=== PATIENT | female | born 1970 | race Caucasian/White ===

== ENCOUNTER → 2017-03-01 | Outpatient (CLI) | payer OTHER ==
--- NOTE | 2017-03-01 18:44 | US ---
EXAMINATION TYPE: US venous doppler duplex LE LT DATE OF EXAM: 03/01/2017 6:04 PM COMPARISON: NONE CLINICAL HISTORY: M79.89 Left Leg Swelling. SIDE PERFORMED: Left TECHNIQUE: The lower extremity deep venous system is examined utilizing real time linear array sonog noemi with graded compression, doppler sonography and color-flow sonography. VESSELS IMAGED: External Iliac Vein (EIV) Common Femoral Vein Deep Femoral Vein Greater Saphenous Vein * Femoral Vein Popliteal Vein Small Saphenous Vein * Proximal Calf Veins (* superficial vessels) Left Leg: Negative for DVT IMPRESSION: Negative exam. No evidence of deep venous thrombosis in the left leg.
== END | disposition home or self-care (01) ==
LOC: RADUSMAIN 18:00
PROVIDERS: ATTEND Family Medicine
DX: M79.89 Other specified soft tissue disorders (principal)

== ENCOUNTER → 2019-03-27 | Outpatient (CLI) | payer OTHER ==
[2019-03-27 11:43] LABS: Cholesterol 156 mg/dL (<200); HDL Cholesterol 48 mg/dL (40-60); LDL Cholesterol,Calculated 96 mg/dL (0-99); Triglycerides 59 mg/dL (<150)
--- NOTE | 2019-03-28 11:35 | MM ---
Reason for exam: screening (asymptomatic). Last mammogram was performed 7 years and 11 months ago. MG 3D Screening Mammo W/Cad Bilateral CC and MLO view(s) were taken. Prior study comparison: April 17, 2011, bilateral digital screening mammo w/CAD. The breast tissue is heterogeneously dense. This may lower the sensitivity of mammography. No suspicious abnormality. No significant new finding when compared with prior studies. ASSESSMENT: Negative, BI-RAD 1 RECOMMENDATION: Routine screening mammogram of both breasts in 1 year.
== END | disposition home or self-care (01) ==
LOC: RADMAMWWP 10:09
PROVIDERS: ATTEND Obstetrics & Gynecology
DX: Z12.31 Encounter for screening mammogram for malignant neoplasm of breast (principal); Z13.220 Encounter for screening for lipoid disorders
CPT/HCPCS: 77063; 77067; 80061

== ENCOUNTER → 2019-09-28 | Outpatient (CLI) | payer OTHER ==
--- NOTE | 2019-09-28 18:03 | CONS ---
CONSULTATION DATE OF SERVICE: 09/28/2019 This patient is a 49-year-old lady who has been evaluated in Sleep Center for possible obstructive sleep apnea-hypopnea syndrome. HISTORY OF PRESENT ILLNESS/SLEEP-WAKE EVALUATION: Patient's usual sleep schedule on working days is from around 10 or 11 p.m. to 6:30 or 7 a.m. and on weekends from around 10 or 11 p.m. until 8 or 9 a.m. Sometimes she has problems with falling asleep. She has a TV set in the bedroom. She usually sleeps on the side position with her with snoring, witnessed episodes by him of stopped breathing during sleep. She wakes up from sleep several times with up to 2 episodes of nocturia during the night. In the morning the patient wakes up tired, has difficulties paying attention, falling asleep during the day, has problems with memory, concentration, episodes of depression and anxiety. [place] Sleepiness Scale is significantly increased at 14. The patient may take 2 naps a day, usually around 1 to 3 p.m. She feels restored after naps. No vivid dreams during the naps and no history of hypnagogic hallucinations. PAST MEDICAL HISTORY: Positive for low level of vitamin D. PAST SURGICAL HISTORY: . MEDICATIONS: Vitamin supplements. SOCIAL HISTORY: Negative for smoking or using alcohol. FAMILY HISTORY: Positive for snoring, cancer in father. REVIEW OF SYSTEMS: Awakenings from sleep, sleepiness during the day. PHYSICAL EXAMINATION: GENERAL: A pleasant lady without distress. VITAL SIGNS: BP 129/75, HR 88, RR 16, height 5 feet 4-1/2 inches, weight 245.4 pounds, body mass index 41.4, temperature 98.3, oxygen saturation at room air 100%. HEENT: PERRLA, EOMI. Evaluation of oropharynx showed tongue protrudes midline. Extremely low position of soft palate. Mallampati IV. NECK: Supple. No JVD. Thyroid is not palpable. Neck measures 15-1/4 inches in circumference. LUNGS: Clear to percussion and to auscultation. Good air exchange. No wheezing or rhonchi. HEART: S1, S2 regular. No murmurs, gallops or rubs. ABDOMEN: Obese. EXTREMITIES: No clubbing or cyanosis. GROUP ROOMS COORDINATOR: Awake, alert, and oriented X3. Cranial nerves 2 to 7 intact. There is no fasciculation or atrophy. noted. No focal deficits observed. IMPRESSION: 1. Snoring, witnessed episodes of stopped breathing during sleep, awakenings from sleep with nocturia, extremely low position of soft palate, Mallampati IV, sleepiness, [place] Sleepiness Scale 14; obstructive sleep apnea-hypopnea syndrome. 2. Obesity with body mass index of 41.4. 3. Status post section. 4. History of low level of vitamin D. PLAN: 1. Polysomnography for evaluation of patient's breathing during sleep. 2. CPAP/BiPAP titration if sleep study confirms obstructive sleep apnea-hypopnea syndrome. 3. Preferable position during sleep on the side. 4. No driving if patient feels any sleepiness. 5. I will see patient for follow up visit to explain results of testing and following plan. Thank you very much for referring this patient for consultation. Sincerely, Burton Gallego MD, PhD, FAASM Diplomat of [place] [employer] [place] [employer] Technical Systems Architect of [facility] [place] MMODL / IJN: [id number] /
== END | disposition home or self-care (01) ==
LOC: SLEEP 13:46
PROVIDERS: ATTEND Internal Medicine
DX: G47.33 Obstructive sleep apnea (adult) (pediatric) (principal); E66.9 Obesity, unspecified; Z68.41 Body mass index [BMI] 40.0-44.9, adult; R35.1 Nocturia; Z98.890 Other specified postprocedural states; Z86.39 Personal history of other endocrine, nutritional and metabolic disease; Z79.899 Other long term (current) drug therapy
CPT/HCPCS: 99211

== ENCOUNTER → 2020-05-09 | Outpatient (CLI) | payer OTHER ==
--- NOTE | 2020-05-13 08:48 | MM ---
Reason for exam: screening (asymptomatic). Last mammogram was performed 1 year and 1 month ago. Physical Findings: A clinical breast exam by your physician is recommended on an annual basis and results should be correlated with mammographic findings. MG 3D Screening Mammo W/Cad Bilateral CC and MLO view(s) were taken. Prior study comparison: March 27, 2019, bilateral MG 3d screening mammo w/cad. April 17, 2011, bilateral digital screening mammo w/CAD. The breast tissue is heterogeneously dense. This may lower the sensitivity of mammography. No significant changes when compared with prior studies. ASSESSMENT: Negative, BI-RAD 1 RECOMMENDATION: Routine screening mammogram of both breasts in 1 year.
== END | disposition home or self-care (01) ==
LOC: RADMAMWWP 16:07
PROVIDERS: ATTEND Obstetrics & Gynecology
DX: Z12.31 Encounter for screening mammogram for malignant neoplasm of breast (principal)
CPT/HCPCS: 77063; 77067

== ENCOUNTER → 2020-08-29 | Outpatient (CLI) | payer OTHER ==
--- NOTE | 2020-08-29 23:01 | SFUN ---
SLEEP CENTER FOLLOW UP NOTE DATE OF SERVICE: 08/29/2020 50-year-old lady has been followed in Sleep Center after she has had a home sleep apnea test and titration. Home sleep apnea test showed obstructive sleep apnea. During titration her respiration was normalized. Subsequently I ordered for her CPAP equipment and she started to use it. Patient able to use it every night without significant problems. I explained her results of the sleep studies. She feels better in the morning after awakenings after usage of CPAP. I checked her CPAP unit. CPAP pressure is 7 cm of water. Usage is 30 out of 30 nights for more than 4 hours. Average usage is 7.7 hours per night. Leak is 4 L/minutes which is normal. Apnea-hypopnea index is 2.1, which is perfect. [place] Sleepiness Scale still increased slightly to 12, but again, as I mentioned above, patient feels better. MEDICATIONS: None. PHYSICAL EXAM: Patient in no distress. BP 121/86, HR 84, RR 12, weight 157.2, temperature 98.4, oxygen saturation at room air 98%. HEENT: PERRLA, EOMI. Oropharynx extremely low position of soft palate. Mallampati 4. NECK: Supple, no JVD. Thyroid is not palpable. LUNGS: Clear to percussion and to auscultation. Good air exchange. No wheezing or rhonchi. HEART: S1, S2 regular. No murmurs, gallops, or rubs. ABDOMEN: Obese. Soft and nontender. Bowel sounds are present. No organomegaly appreciated. EXTREMITIES: No clubbing or cyanosis. STEEL ERECTOR APPRENTICE: Awake, alert, and oriented X3. Cranial nerves 2 to 7 intact. There is no fasciculation or atrophy. noted. No focal deficits observed. IMPRESSION: 1. Obstructive sleep apnea-hypopnea syndrome. Patient demonstrated 100% compliance with treatment benefitting from treatment. 2. Obesity. 3. Status post . 4. History of low vitamin D level. PLAN: 1. Patient will continue to use PAP equipment every night for the whole night. 2. Sleep hygiene with regular time in bed for at least 7-1/2 to 8 hours. 3. Precautions related to driving. No driving if feeling sleepiness. 4. I will maintain all necessary prescription for PAP supplies including mask, tube, filters. 5. Watching weight. 6. No driving if feeling sleepiness. 7. Follow-up visit in 6 months or earlier if patient has any problems. Thank you very much for allowing me to participate in management of your patient. Sincerely, Burton Gallego MD, PhD, FAASM Diplomat of [place] [employer] [employer] of [facility] [place] MMODL / SARAHN: [id number] /
== END | disposition home or self-care (01) ==
LOC: SLEEP 13:30
PROVIDERS: ATTEND Internal Medicine
DX: G47.33 Obstructive sleep apnea (adult) (pediatric) (principal); E66.9 Obesity, unspecified; Z99.89 Dependence on other enabling machines and devices; Z98.890 Other specified postprocedural states; Z86.2 Personal history of diseases of the blood and blood-forming organs and certain disorders involving the immune mechanism

== ENCOUNTER → 2021-02-03 | Outpatient (CLI) | payer OTHER | END | disposition home or self-care (01) | LOC: LABWHC1 10:21 | PROVIDERS: ATTEND Nurse Practitioner Acute Care | DX: E53.9 Vitamin B deficiency, unspecified (principal); E55.9 Vitamin D deficiency, unspecified; R53.82 Chronic fatigue, unspecified | CPT/HCPCS: 36415; 82306; 82607; 84207; 84439; 84443; 84481 ==

== ENCOUNTER → 2021-04-17 | Outpatient (CLI) | payer OTHER ==
--- NOTE | 2021-04-17 17:13 | SFUN ---
SLEEP CENTER FOLLOW UP NOTE DATE OF SERVICE: 04/17/2021. 51-year-old lady has been followed in Sleep Center for treatment of obstructive sleep apnea-hypopnea syndrome. Patient continues to use her CPAP equipment every night for the whole night but still has sleepiness and tiredness during the day. [place] Sleepiness Scale today increased to 14. Patient getting all her CPAP supplies. I checked CPAP unit. Air filter is very old and dirty. CPAP pressure is 7 cm of water. Usage is 30/30 nights and 28/30 nights for more than 4 hours. Average usage is 6.4 hours, which indicates good compliance. Leak is only 6 L/minutes which is normal. Apnea-hypopnea index is only 1.7 which is absolutely perfect. CURRENT MEDICATIONS: None at the present time. PHYSICAL EXAMINATION: GENERAL: Patient in no distress. BP 123/81, HR 86, RR 15, height 5 feet 5 inches, weight 259, BMI 43.0. Temperature 98.1, oxygen saturation at room air 97%. Oropharynx: Extremely low position of soft palate, Mallampati 4. NECK: Supple, no JVD. Thyroid is not palpable. LUNGS: Clear to percussion and to auscultation. Good air exchange. No wheezing or rhonchi. HEART: S1, S2 regular. No murmurs, gallops, or rubs. ABDOMEN: Obese. Soft and nontender. Bowel sounds are present. No organomegaly appreciated. EXTREMITIES: No clubbing or cyanosis. RADIO OFFICER: Awake, alert, and oriented X3. Cranial nerves 2 to 7 intact. There is no fasciculation or atrophy. noted. No focal deficits observed. IMPRESSION: 1. Obstructive sleep apnea-hypopnea syndrome patient demonstrated 100% compliance with treatment benefitting from treatment. 2. The patient continues to feel sleepy while using CPAP equipment. Today her [place] Sleepiness Scale significantly increased to 14. Differential diagnosis should include additional diagnosis of hypersomnia or narcolepsy without cataplexy. 3. Obesity, in morbid range. BMI 43.0. 4. Status post . 5. History of low vitamin D level. PLAN: 1. Multiple sleep latency test for objective evaluation of patient's symptoms of excessive daytime sleepiness. It should be done after the night in the office on the CPAP. 2. Losing weight. 3. Sleep hygiene with regular time in bed for 7-1/2 to 8 hours. 4. Precautions related to driving. No driving if feeling sleepiness. 5. Replace air filter immediately. 6. Continue treatment with CPAP every night for the whole night. 7. Following plan after reviewing results of MSLT. Thank you very much for allowing me to participate in management of your patient., Sincerely, Burton Gallego MD, PhD, FAASM Diplomat of [employer] [employer] Sleep Medicine Board of [place] [employer] Punch Press Setter of [facility] [place] MMODL / IJN: [id number] /
== END ==
LOC: SLEEP 13:55
PROVIDERS: ATTEND Internal Medicine
DX: G47.33 Obstructive sleep apnea (adult) (pediatric) (principal); E66.01 Morbid (severe) obesity due to excess calories; Z68.41 Body mass index [BMI] 40.0-44.9, adult; Z99.89 Dependence on other enabling machines and devices; Z86.39 Personal history of other endocrine, nutritional and metabolic disease; Z98.891 History of uterine scar from previous surgery

== ENCOUNTER → 2021-07-28 | Outpatient (CLI) | payer OTHER ==
--- NOTE | 2021-07-29 14:42 | MM ---
Reason for exam: screening (asymptomatic). Last mammogram was performed 1 year and 3 months ago. Physical Findings: A clinical breast exam by your physician is recommended on an annual basis and results should be correlated with mammographic findings. MG 3D Screening Mammo W/Cad Bilateral CC and MLO view(s) were taken. Prior study comparison: May 09, 2020, bilateral MG 3d screening mammo w/cad. March 27, 2019, bilateral MG 3d screening mammo w/cad. The breast tissue is heterogeneously dense. This may lower the sensitivity of mammography. No significant changes when compared with prior studies. ASSESSMENT: Negative, BI-RAD 1 RECOMMENDATION: Routine screening mammogram of both breasts in 1 year.
== END | disposition home or self-care (01) ==
LOC: RADMAMWWP 09:36
PROVIDERS: ATTEND Obstetrics & Gynecology
DX: Z12.31 Encounter for screening mammogram for malignant neoplasm of breast (principal)
CPT/HCPCS: 77063; 77067

== ENCOUNTER → 2021-08-13 | Outpatient (CLI) | payer OTHER ==
--- NOTE | 2021-08-14 06:58 | SFUN ---
SLEEP CENTER FOLLOW UP NOTE DATE OF SERVICE: 08/13/2021 51-year-old lady has been followed in Sleep Center for treatment of obstructive sleep apnea-hypopnea syndrome and excessive daytime sleepiness to discuss results of recent PAP titration night with following multiple sleep latency test. I discussed results of sleep studies with patient in details. During PAP titration night, the patient respiration was on full control for the whole night. Total apnea- hypopnea index for the whole night 2.2 and that was with range of pressure from 7 to 10 cm of water. No significant periodic limb movements have been documented at all. Multiple sleep latency test on the following day showed mean sleep latency 11.5 minutes using a 4 naps and 12.8 minutes calculating 5 naps. No sleep onset REM periods have been documented. Results exclude narcolepsy but may indicate mild sleepiness related to obstructive sleep apnea-hypopnea syndrome. Sometimes sleepiness could be present even after respiration on full control with CPAP. Patient continued to feel some sleepiness. [place] Sleepiness Scale today increased to 13. MEDICATIONS: None. PHYSICAL EXAMINATION: GENERAL: Patient in no distress. BP 121/79, HR 80, RR 16, height 5 feet 4-3/4 inches, weight 252 pounds. Body mass index 42.3, temperature 97.5, oxygen saturation at room air 99%. Oropharynx: Extremely low position of soft palate, Mallampati 4. NECK: Supple, no JVD. Thyroid is not palpable. LUNGS: Clear to percussion and to auscultation. Good air exchange. No wheezing or rhonchi. HEART: S1, S2 regular. No murmurs, gallops, or rubs. ABDOMEN: Obese. Soft and nontender. Bowel sounds are present. No organomegaly appreciated. EXTREMITIES: No clubbing or cyanosis. FLUID DESIGNER: Awake, alert, and oriented X3. Cranial nerves 2 to 7 intact. There is no fasciculation or atrophy. noted. No focal deficits observed. I checked CPAP unit. Pressure is 7 cm of water. Usage is 26/30 nights. Average usage 4.8 hours per night. Leak is 18 L/minute which is borderline. Apnea-hypopnea index is 1.7 which is absolutely normal. IMPRESSION: 1. Obstructive sleep apnea-hypopnea syndrome. The patient demonstrated borderline compliance with treatment. Normal respiration on CPAP. 2. Multiple sleep latency test to exclude narcolepsy or idiopathic hypersomnia. Very slight sleepiness by results of the test could be related to obstructive sleep apnea-hypopnea syndrome. 3. Obesity. 4. Status post . 5. History of low vitamin D level. PLAN: 1. Patient should continue to use CPAP equipment every night for the whole night. 2. Present usage machine average 4.8 hours per night for the last month. The patient should increase time of sleep and usage machine to 7.5 hours. 3. Precautions related to driving. No driving if feeling sleepiness. 4. I discussed with the patient possibility to start her on treatment with modafinil or armodafinil to prevent any symptoms of excessive daytime sleepiness. 5. Precautions related to driving. No driving if feeling sleepiness. 6. I will maintain all necessary prescription for CPAP supplies. 7. Losing weight. Thank you very much for allowing me to participate in management of your patient. Sincerely, Burton Gallego MD, PhD, FAASM Diplomat of [place] [employer] Sleep Medicine Board of [place] [employer] Medicine Home Health Assistant of [facility] [place] MMODL / SARAHN: [id number] /
== END ==
LOC: SLEEP 15:40
PROVIDERS: ATTEND Internal Medicine
DX: G47.33 Obstructive sleep apnea (adult) (pediatric) (principal); E66.9 Obesity, unspecified; Z87.59 Personal history of other complications of pregnancy, childbirth and the puerperium; Z99.89 Dependence on other enabling machines and devices; Z68.41 Body mass index [BMI] 40.0-44.9, adult; Z86.39 Personal history of other endocrine, nutritional and metabolic disease

== ENCOUNTER → 2021-11-17 | Outpatient (CLI) | payer OTHER | END | disposition home or self-care (01) | LOC: LABWHC1 10:04 | PROVIDERS: ATTEND Psychiatry & Neurology Neurology | DX: I49.9 Cardiac arrhythmia, unspecified (principal) | CPT/HCPCS: 36415; 93005 ==

== ENCOUNTER → 2022-04-15 | Outpatient (CLI) | payer OTHER ==
--- NOTE | 2022-04-15 15:01 | P.PN ---
Subjective DATE: 04/15/2022 FOLLOW UP VISIT. Patient with obstructive sleep apnea hypopnea syndrome return to sleep center for follow-up visit. Information from previous visit have been reviewed. Patient is using PAP equipment every night but some nights note for the whole night, getting PAP supplies in time. The patient does not have significant problems with the mask, PAP unit and humidification. [place] sleepiness scale is still significantly increased to 19. I checked PAP unit. PAP unit pressure 7 cm H2O. Usage is 70 % for more then 4 hours, average 4.3 hours per night. Leak is 18 l/m, which is in acceptable range. Apnea Hypopnea Index is 1.9, which is normal. MEDICATIONS: None During physical exam: GENERAL: A pleasant patient without any distress. VITAL SIGNS: BP 118/78, HR 74, RR 16, weight 259, temperature 98.3, oxygen saturation at room air 98 % . HEENT: PERRLA, EOMI.low position of soft palate, Mallapati 4 . NECK: Supple. No JVD. LUNGS: Clear to percussion and to auscultation. Good air exchange. No wheezing or rhonchi. HEART: S1, S2 regular. ABDOMEN: Soft and nontender. Obese EXTREMITIES: No clubbing or cyanosis. DIRECTOR OF RADIO SERVICES: Awake, alert, and oriented x3. No focal deficit. Impressions: 1. Obstructive sleep apnea-hypopnea syndrome. Patient demonstrated good compliance with treatment, benefiting from treatment. She continued to have symptoms of excessive daytime sleepiness. 2. Obesity body mass index 43.9. 3. Status post . 4. History of low vitamin D level. Plan: 1. Continue using PAP equipment every night for the whole night. 2. To change air filter at least 1-2 times per month. 3. Prescription for modafinil 200 mg once a day in the morning. 4. Advised patient to remove all remaining water from humidifier canister daily and make it dry after each usage. Refill canister with fresh distilled water before each usage. 5. Sleep hygiene with regular time in bed for at least 8 hours. 6. Precautions related to driving. No driving if feel any sleepiness. 7. I will maintain prescription for PAP supplies including mask, tube, filters. 8. Follow up visit in 6 months or earlier if patient has any problems. 9. Watching and losing weight. Thank you very much for allowing me to participate in the management of your patient. Burton Gallego MD, PhD, FAASM. Diplomat of [place] [employer], Sleep Medicine Board by [place] [employer] Gas Welder of [facility] [place]
== END ==
LOC: SLEEP 14:25
PROVIDERS: ATTEND Internal Medicine
DX: G47.33 Obstructive sleep apnea (adult) (pediatric) (principal); E66.9 Obesity, unspecified; Z68.41 Body mass index [BMI] 40.0-44.9, adult; Z87.59 Personal history of other complications of pregnancy, childbirth and the puerperium; Z86.39 Personal history of other endocrine, nutritional and metabolic disease; Z99.89 Dependence on other enabling machines and devices

== ENCOUNTER 2022-11-05 09:54 | Day surgery (SDC) | payer OTHER ==
[2022-11-03 10:05] VITALS: BMI 40.3
[~2022-11-05 09:54] MED LIST: LACTATED RINGERS 1,000 ML IV SCH
[2022-11-05 10:17] VITALS: RESP 16; TEMP 98
[2022-11-05] MEDS ORDERED: PROPOFOL 10 MG/ML 20 ML VIAL IV ONE (10:30)
--- NOTE | 2022-11-05 10:42 | P.GSHP ---
History of Present Illness H&P Date: 11/05/22 Chief Complaint: Screening This is a 52-year-old female presents today for screening colonoscopy. Patient denies any significant GI complaints. Past Medical History Past Medical History: Sleep Apnea/CPAP/BIPAP Additional Past Medical History / Comment(s): ONE KIDNEY SMALLER THAN THE OTHER History of Any Multi-Drug Resistant Organisms: None Reported Past Surgical History: Section, Orthopedic Surgery Additional Past Surgical History / Comment(s): RIGHT WRIST GANGLION CYST REMOVAL Past Anesthesia/Blood Transfusion Reactions: No Reported Reaction Past Psychological History: No Psychological Hx Reported Smoking Status: Never smoker Past Alcohol Use History: Occasional Past Drug Use History: None Reported Medications and Allergies Home Medications Medication Instructions Recorded Confirmed Type No Known Home Medications 11/03/22 11/05/22 History Allergies Allergy/AdvReac Type Severity Reaction Status Date / Time No Known Allergies Allergy Verified 11/05/22 10:06 Surgical - Exam Vital Signs Temp Pulse Resp BP Pulse Ox 98 F 71 16 138/63 99 11/05/22 10:14 11/05/22 10:14 11/05/22 10:14 11/05/22 10:14 11/05/22 10:14 - General well developed, well nourished, no distress - Eyes PERRL - ENT normal pinna - Neck no masses - Respiratory normal expansion - Cardiovascular Rhythm: regular - Abdomen Abdomen: soft, non tender Assessment and Plan Assessment: We'll perform screening colonoscopy.
--- NOTE | 2022-11-05 10:58 | P.OP ---
Date of Procedure: 11/05/22 Preoperative Diagnosis: Screening colonoscopy Postoperative Diagnosis: Normal colon Procedure(s) Performed: Colonoscopy Anesthesia: MAC Surgeon: Gurvinder Woody Pathology: none sent Condition: stable Disposition: PACU Description of Procedure: The patient's placed on the endoscopy table in the lateral position. She received IV sedation. Digital rectal exam was performed. This revealed a few external hemorrhoids. The flexible colonoscope was then placed patient anus and passed throughout the entire colon. The ileocecal valve was visually is. The cecum, ascending and transverse colon appeared normal. The descending and sigmoid colon. Appeared normal.. Scope was then brought back the rectum and this appeared normal. Scope withdrawn for patient.
[2022-11-05 11:15] VITALS: BP 128/72; PULSE 70
== END 2022-11-05 11:48 | disposition home or self-care (01) ==
LOC: ORWHC2ENDO 09:54
PROVIDERS: ATTEND Surgery
DX: Z12.11 Encounter for screening for malignant neoplasm of colon (principal); K64.4 Residual hemorrhoidal skin tags; G47.33 Obstructive sleep apnea (adult) (pediatric); Z98.891 History of uterine scar from previous surgery; Z98.890 Other specified postprocedural states; Z86.59 Personal history of other mental and behavioral disorders
CPT/HCPCS: 45378; J2704

== ENCOUNTER → 2024-07-18 | Outpatient (CLI) | payer BC ==
--- NOTE | 2024-07-19 12:07 | MM ---
Reason for Exam: Screening (asymptomatic). Last mammogram was performed 1 year(s) and 10 month(s) ago. Patient History: Menarche at age 13. First Full-Term at age 27. Premenopausal. Previous chemotherapy. Paternal grandmother had breast cancer, age 50. Risk Values: Araceli 5 year model risk: 1.3%. NCI Lifetime model risk: 10.5%. Prior Study Comparison: 05/09/2020 Bilateral Screening Mammogram, [facility]. 07/28/2021 Bilateral Screening Mammogram, [facility]. 09/07/2022 Bilateral MG 3D screening mammo w/cad, [facility]. Tissue Density: There are scattered areas of fibroglandular density. Findings: Analyzed By CAD. Right breast: There is no suspicious group of microcalcifications or new suspicious mass. Left breast: There is no suspicious group of microcalcifications or new suspicious mass. Overall Assessment: Negative, BI-RAD 1 Management: Screening Mammogram of both breasts in [address] [facility] will attempt to contact patient to return for supplemental views and ultrasound if indicated. Patient should continue monthly self-breast exams. A clinical breast exam by your physician is recommended on an annual basis. This exam should not preclude additional follow-up of suspicious palpable abnormalities. Note on Araceli scores and lifetime risk: 1. A Araceli score greater than 3% is considered moderate risk. If this is the case, consider specialist referral to assess eligibility for a risk reducing agent. 2. If overall lifetime risk for the development of breast cancer is 20% or higher, the patient may qualify for future screening with alternating mammogram and breast MRI. [facility], , 07/19/2024 12:05 PM. Electronically signed and approved by: Neo Pedro DO
== END | disposition home or self-care (01) ==
LOC: RADMAMWWP 16:28
PROVIDERS: ATTEND Family Medicine
DX: Z12.31 Encounter for screening mammogram for malignant neoplasm of breast (principal); Z80.3 Family history of malignant neoplasm of breast; R92.323 Mammographic fibroglandular density, bilateral breasts
CPT/HCPCS: 77063; 77067